=== PATIENT | female | born 1970 | race Caucasian/White ===

== ENCOUNTER 2021-04-12 07:50 | Day surgery (SDC) | payer MEDICAID ==
[~2021-04-12 07:50] MED LIST: Midazolam 1 MG/ML 2 ML SDV ONE; Propofol 200 MG/20 ML SDV ONE; fentaNYL 100 MCG/2 ML SDV ONE
[2021-04-12] MEDS ORDERED: Sodium Chloride 0.9% 1,000 ML IV SCH (08:30)
--- NOTE | 2021-04-12 13:44 | OR ---
DATE OF PROCEDURE: SURGEON: Brandon Kate MD PROCEDURE: Colonoscopy. FINDINGS: Diverticulosis, mild, mostly limited to sigmoid colon without evidence of diverticulitis or bleeding. COMPLICATIONS: None. JAVA TECH LEAD: None. ANESTHESIA: MAC. PREOPERATIVE DIAGNOSIS: Screening colonoscopy. POSTOPERATIVE DIAGNOSIS: Screening colonoscopy. PROCEDURE IN DETAIL: The patient was placed in the left lateral decubitus position. Digital rectal exam was performed without abnormality. Scope was introduced and advanced atraumatically to the ileocecal valve. A photo was taken. The scope was brought back to the ascending, transverse, descending colon, and retroflexed. No evidence of old or new blood. No masses. No polyps. Diverticulosis described as mild throughout the entire colon but mostly concentrated in the sigmoid colon in a classic pattern. No abnormalities on retroflexion. Greater than 8 minutes was spent removing the scope. Prep was acceptable, approximately 90% of luminal surface could be seen. The patient tolerated the procedure well. Brandon Kate MD /[id number]
== END 2021-04-12 11:24 | disposition home or self-care (01) ==
LOC: JP.SDS 07:50
PROVIDERS: ATTEND Surgery
DX: Z12.11 Encounter for screening for malignant neoplasm of colon (principal); K57.30 Diverticulosis of large intestine without perforation or abscess without bleeding
CPT/HCPCS: 45378; J2250; J2704; J3010; J7030

== ENCOUNTER 2021-06-02 12:29 | Emergency (ER) | payer MEDICAID | END 2021-06-02 13:47 | disposition home or self-care (01) | LOC: JP.ED 12:29 | DX: S93.501A Unspecified sprain of right great toe, initial encounter (principal); S90.31XA Contusion of right foot, initial encounter; W55.12XA Struck by horse, initial encounter | CPT/HCPCS: 73630-26-RT; 73630-RT; 99283-25 ==